=== PATIENT | male | born 1965 | race Caucasian/White ===

== ENCOUNTER → 2016-10-19 | Outpatient (CLI) | payer OTHER ==
[~2016-10-19] VITALS: Ht 177.8 cm; Wt 82.8 kg
[~2016-10-19] MED LIST: FLUTISP; LIDOCAINE 2% INJ 100 MG/5 ML SDV (FOR ANES.) As Ordered ONE; NS 1,000 ML IV SCH; OMEP20CA3 PO; PROPOFOL 200 MG/20 ML VIAL As Ordered ONE; SODI5OPD OD; VITA500046 PO
--- NOTE | 2016-10-19 11:59 | ROOR ---
Patient Name: Anshul Gant Procedure Date: 10/19/2016 11:23 AM Date of : 1965 Age: 50 Room: [facility] Gender: Male Note Status: Finalized Procedure: Colonoscopy Indications: Screening for colorectal malignant neoplasm Providers: Lauri THOMAS MD Referring MD: SANDRA BOYER JR, MD Requesting Provider: Medicines: Monitored Anesthesia Care Complications: No immediate complications. Procedure: Pre-Anesthesia Assessment: - The heart rate, respiratory rate, oxygen saturations, blood pressure, adequacy of pulmonary ventilation, and response to care were monitored throughout the procedure. The Colonoscope was introduced through the anus and advanced to the cecum, identified by appendiceal orifice and ileocecal valve. The colonoscopy was performed without difficulty. The patient tolerated the procedure well. The quality of the bowel preparation was good. Findings: (Exam: Complete, Prep: Good or Excellent.) The perianal exam findings include non-thrombosed external hemorrhoids. A 6 mm polyp was found in the splenic flexure. The polyp was sessile. The polyp was removed with a cold snare. Resection and retrieval were complete. The exam was otherwise without abnormality on direct and retroflexion views. Impression: - (Exam: Complete, Prep: Good or Excellent.) - Non-thrombosed external hemorrhoids found on perianal exam. - One 6 mm polyp at the splenic flexure, removed with a cold snare. Resected and retrieved. - The examination was otherwise normal on direct and retroflexion views. Recommendation: - Repeat colonoscopy in 3 years for surveillance. - Telephone endoscopist for pathology results in 2 weeks. Lauri Thomas MD Lauri THOMAS MD 10/19/2016 11:58:56 AM This report has been signed electronically. Number of Addenda: 0 Note Initiated On: 10/19/2016 11:23 AM Estimated Blood Loss: Estimated blood loss: none.
[2016-10-19 12:05] VITALS: BP_DIAS 56
[2016-10-19 12:26] VITALS: BP_SYST 142
== END | disposition home or self-care (01) ==
LOC: M OPP 09:18
PROVIDERS: ATTEND Internal Medicine Gastroenterology
DX: Z12.11 Encounter for screening for malignant neoplasm of colon (principal); K64.4 Residual hemorrhoidal skin tags; D12.3 Benign neoplasm of transverse colon; K21.9 Gastro-esophageal reflux disease without esophagitis; H44.21 Degenerative myopia, right eye; Z97.2 Presence of dental prosthetic device (complete) (partial); F17.200 Nicotine dependence, unspecified, uncomplicated; F17.228 Nicotine dependence, chewing tobacco, with other nicotine-induced disorders; Z79.899 Other long term (current) drug therapy; Z79.51 Long term (current) use of inhaled steroids

== ENCOUNTER → 2016-12-25 | Outpatient (REF) | payer OTHER ==
[~2016-12-25] MED LIST changes: -LIDOCAINE 2% INJ 100 MG/5 ML SDV (FOR ANES.) As Ordered ONE; -NS 1,000 ML IV SCH; -PROPOFOL 200 MG/20 ML VIAL As Ordered ONE
== END ==
LOC: M LAB REF 12:17
PROVIDERS: ATTEND Nurse Practitioner Family
DX: E29.1 Testicular hypofunction (principal)

== ENCOUNTER → 2017-01-25 | Outpatient (REF) | payer OTHER | LOC: M LAB REF 13:03 | PROVIDERS: ATTEND Nurse Practitioner Family | DX: E29.1 Testicular hypofunction (principal) ==

== ENCOUNTER → 2017-02-08 | Outpatient (REF) | payer OTHER | LOC: M LAB REF 15:11 | PROVIDERS: ATTEND Nurse Practitioner Family | DX: J02.9 Acute pharyngitis, unspecified (principal) ==

== ENCOUNTER → 2018-03-04 | Outpatient (REF) | payer OTHER ==
[2018-03-04 13:03] LABS: TESTOSTERONE 174 NG/DL (241-827)
== END ==
LOC: M LAB REF 11:45
DX: E29.1 Testicular hypofunction (principal)

== ENCOUNTER → 2022-11-27 | Outpatient (REF) | payer OTHER ==
[~2022-11-27] MED LIST changes: +OMEP1CAP73 PO; -OMEP20CA3 PO
[2022-11-27 13:27] LABS: ALBUMIN 3.8 G/DL (3.2-5.2); ALKALINE PHOSPHATASE 83 U/L (46-116); ALT/SGPT 18 U/L (7.0-40); AST/SGOT 16 U/L (<34); BILIRUBIN,TOTAL 1.3 MG/DL (0.3-1.2); BLOOD UREA NITROGEN 16 MG/DL (9-23); CALCIUM LEVEL 9.3 MG/DL (8.5-10.1); CARBON DIOXIDE LEVEL 27 MMOL/L (20-31); CHLORIDE LEVEL 107 MMOL/L (98-107); CHOLESTEROL LEVEL 210 MG/DL (<200); CHOLESTEROL RISK RATIO 3.52 (<5); CREATININE FOR GFR 0.91 MG/DL (0.70-1.30); GLOMERULAR FILTRATION RATE > 60.0 (>56); GLUCOSE, FASTING 108 MG/DL (60-100); HDL CHOLESTEROL 59.5 MG/DL (>40); LDL CHOLESTEROL 123.1 MG/DL (<100); NON-HDL-C 150.5 MG/DL; POTASSIUM SERUM 4.8 MMOL/L (3.5-5.1); SODIUM LEVEL 141 MMOL/L (136-145); TOTAL PROTEIN 6.9 G/DL (5.7-8.2); TRIGLYCERIDES LEVEL 137 MG/DL (<150)
[2022-11-27 13:30] LABS: THYROID STIMULATING HORMONE 1.215 uIU/ML (0.55-4.78)
[2022-11-27 13:31] LABS: BASO # 0.2 10^3/uL (0.0-0.2); BASO % 1.4 % (0.0-1.0); EOS # 0.4 10^3/uL (0.0-0.5); EOS % 3.7 % (0.0-3.0); HEMATOCRIT 52.2 % (42.0-52.0); HEMOGLOBIN 16.8 g/dl (13.5-17.5); LYMPH # 4.3 10^3/uL (1.5-5.0); LYMPH % 38.8 % (24.0-44.0); MEAN CORPUSCULAR HEMOGLOBIN 27.5 pg (27.0-33.0); MEAN CORPUSCULAR HGB CONC 32.2 g/dl (32.0-36.5); MEAN CORPUSCULAR VOLUME 85.3 fl (80.0-96.0); MONO # 1.1 10^3/uL (0.0-0.8); NEUTROPHILS % 45.6 % (36.0-66.0); PLATELET COUNT, AUTOMATED 403 10^3/uL (150-450); RED BLOOD COUNT 6.12 10^6/uL (4.30-6.10)
[2022-11-27 13:56] LABS: HEMOGLOBIN A1c 5.8 % (4.0-6.0)
== END ==
LOC: M LAB REF 12:31
PROVIDERS: ATTEND Nurse Practitioner Family
DX: I10 Essential (primary) hypertension (principal); F41.8 Other specified anxiety disorders; Z86.39 Personal history of other endocrine, nutritional and metabolic disease

== ENCOUNTER → 2022-12-10 | Outpatient (REF) | payer OTHER ==
[2022-12-11 13:55] LABS: CREATININE, URINE 152.7 MG/DL
[2022-12-11 13:56] LABS: MAU/CREAT RATIO 2.6 MCG/MG (0.0-30.0)
== END ==
LOC: M LAB REF 12:21
PROVIDERS: ATTEND Nurse Practitioner Family
DX: Z86.39 Personal history of other endocrine, nutritional and metabolic disease (principal)

== ENCOUNTER 2023-02-01 11:04 | Day surgery (SDC) | payer OTHER ==
[~2023-02-01] VITALS: Ht 180.3 cm; Wt 77.7 kg
[~2023-02-01 11:04] MED LIST changes: +AMLO1TAB24 PO; +BANO25TA PO; +FLUT50SP17; -FLUTISP; +NS 1,000 ML IV ONE; +OMEP40CA4 PO; +SODI1SOL4 OD; -SODI5OPD OD
[2023-02-01] MEDS ORDERED: fentaNYL 100 MCG/2 ML INJECTION As Ordered ONE (11:29)
[2023-02-01] MEDS ORDERED: propofoL 200 MG/20 ML VIAL As Ordered ONE (12:13)
[2023-02-01] MEDS ORDERED: LIDOCAINE 2% 100MG/5ML SDV (FOR ANES.) As Ordered ONE (12:13)
[2023-02-01 12:25] VITALS: BP 136/81
== END 2023-02-01 12:33 | disposition home or self-care (01) ==
LOC: M OPP 11:04
PROVIDERS: ATTEND Internal Medicine Gastroenterology
DX: Z12.11 Encounter for screening for malignant neoplasm of colon (principal); Z86.010 Personal history of colon polyps; D12.0 Benign neoplasm of cecum; K57.30 Diverticulosis of large intestine without perforation or abscess without bleeding; K64.8 Other hemorrhoids; K22.89 Other specified disease of esophagus; F17.200 Nicotine dependence, unspecified, uncomplicated; Z79.51 Long term (current) use of inhaled steroids; Z79.899 Other long term (current) drug therapy
CPT/HCPCS: 43239; 45380; 88305; J3010

== ENCOUNTER → 2023-03-10 | Outpatient (REF) ==
[~2023-03-10] MED LIST changes: -NS 1,000 ML IV ONE
== END ==
LOC: M PLAIMG 10:27
PROVIDERS: ATTEND Internal Medicine
DX: R52 Pain, unspecified (principal)

== ENCOUNTER 2023-07-21 05:59 | Day surgery (SDC) | payer OTHER ==
[~2023-07-21] VITALS: Ht 177.8 cm; Wt 80.5 kg
[~2023-07-21 05:59] MED LIST changes: +AMLO1TAB25 PO; +LEXA1TAB2 PO
[2023-07-21] MEDS ORDERED: PHENYLEPHRINE 10% OPHTH SOL 5ML OD PRN (06:00)
[2023-07-21] MEDS: OFLOXACIN 0.3 % (OCUFLOX) OPTH SOL 5ML OD ONE (06:49)
[2023-07-21] MEDS: LIDOCAINE 3.5 % 1ML OPHTH TOPICAL GEL OU ONE (06:49)
[2023-07-21] MEDS: PHENYLEPHRINE 2.5% OPHTH SOL 2ML OD SCH (06:49)
[2023-07-21] MEDS: TROPICAMIDE 1% OPHTH SOLN 15ML OD SCH (06:49)
[2023-07-21] MEDS: CYCLOPENTOLATE 1% OPHTH SOLN 2ML BTL OD SCH (06:49)
[2023-07-21] MEDS ORDERED: MIDAZOLAM INJ 2MG/2ML VIAL As Ordered ONE ×2 (07:11→08:54)
[2023-07-21] MEDS ORDERED: fentaNYL 100 MCG/2 ML INJECTION As Ordered ONE ×2 (07:11→08:21)
[2023-07-21] MEDS: LIDOCAINE 1% SDV 5ML VIAL As Ordered ONE (07:54)
[2023-07-21] MEDS: TOBRADEX OPHTH OINT 3.5 GM As Ordered ONE (07:59)
[2023-07-21] MEDS: CEFUROXIME 1MG/0.1ML INTRACAMERAL INJ As Ordered ONE (07:59)
[2023-07-21] MEDS: BSS IRRIG/VANCO(10MG)/TOBRA(5MG)/EPINEPH(1:1000-0.5CC)500ML BAG-ORONLY IR ONE (07:59)
[2023-07-21] MEDS: ACETYLCHOLINE OPHTH SOLN 1% 2ML (MIOCHOL-E) As Ordered ONE ×2 (08:11→08:37)
[2023-07-21] MEDS: DUOVISC (0.50ML VISCOAT/0.85ML PROVISC) OPHTH KIT As Ordered ONE (08:11)
[2023-07-21] MEDS ORDERED: LABETALOL 100MG/20ML VIAL As Ordered ONE (08:14)
[2023-07-21] MEDS ORDERED: propofoL 200 MG/20 ML VIAL As Ordered ONE ×2 (08:27→08:54)
[2023-07-21 10:27] VITALS: BP 119/85; TEMP 98.1; O2SAT 97
[2023-07-21] MEDS ORDERED: ACETAMINOPHEN TAB 650MG DOSE (2X325MG) PO ONE (11:10)
[2023-07-21] MEDS ORDERED: acetaZOLAMIDE 500MG ER CAP PO ONE (11:10)
== END 2023-07-21 11:09 | disposition home or self-care (01) ==
LOC: M SDC 05:59
PROVIDERS: ATTEND Ophthalmology
DX: H18.511 Endothelial corneal dystrophy, right eye (principal); H26.9 Unspecified cataract; R73.03 Prediabetes; I10 Essential (primary) hypertension; K21.9 Gastro-esophageal reflux disease without esophagitis; F17.210 Nicotine dependence, cigarettes, uncomplicated; Z79.899 Other long term (current) drug therapy
CPT/HCPCS: 65756; 66984; 87070; 87075; 87205; J0697; J1920; J2250; J3010; V2632

== ENCOUNTER 2023-07-21 14:21 | Emergency (ER) | payer OTHER ==
[~2023-07-21] VITALS: Ht 180.3 cm; Wt 77.3 kg
[2023-07-21] MEDS ORDERED: diazePAM 10MG/2ML SYRINGE IV ONE (14:50)
[2023-07-21] MEDS ORDERED: METOCLOPRAMIDE INJ 10MG/2ML VIAL IV ONE (14:50)
[2023-07-21] MEDS ORDERED: MORPHINE 4 MG/ML 1ML VIAL IV ONE (14:50)
[2023-07-21] MEDS ORDERED: TIMOLOL MALEATE 0.5% OPHTH SOLN 5 ML OD STA (15:07)
[2023-07-21] MEDS ORDERED: BRIMONIDINE 0.15% OPHTH SOLN 5 ML OD STA (15:07)
[2023-07-21] MEDS ORDERED: TETRACAINE 0.5% OPHTH SOLN 4ML As Ordered ONE (15:46)
[2023-07-21] MEDS ORDERED: TETRACAINE 0.5% OPHTH SOLN 4ML OD ONE (16:00)
[2023-07-21 16:55] VITALS: TEMP 97.5
[2023-07-21 17:00] VITALS: BP 145/96
[2023-07-21 17:21] VITALS: O2SAT 97
== END 2023-07-21 17:35 | disposition home or self-care (01) ==
LOC: M ED 14:21 → EDBD 14:21 → M ED 17:35
DX: T88.9XXA Complication of surgical and medical care, unspecified, initial encounter (principal); H40.051 Ocular hypertension, right eye; H57.11 Ocular pain, right eye; K21.9 Gastro-esophageal reflux disease without esophagitis; F10.10 Alcohol abuse, uncomplicated; Z79.83 Long term (current) use of bisphosphonates; Z79.899 Other long term (current) drug therapy
CPT/HCPCS: 96374; 96375; 99284; J1120; J2765; J3360

== ENCOUNTER 2023-08-18 12:14 | Day surgery (SDC) | payer OTHER ==
[~2023-08-18] VITALS: Ht 180.3 cm; Wt 78.0 kg
[~2023-08-18 12:14] MED LIST changes: -FLUT50SP17; +FLUTISP; +LIDOCAINE 3.5 % 1ML OPHTH TOPICAL GEL OU ONE
[2023-08-18] MEDS ORDERED: LIDOCAINE 4% TOPICAL SOLN 50 ML BTL As Ordered ONE (13:03)
[2023-08-18] MEDS ORDERED: LIDOCAINE 4% INJ 5ML AMP As Ordered ONE (13:12)
[2023-08-18] MEDS ORDERED: LR 1,000 ML IV SCH (13:50)
[2023-08-18] MEDS ORDERED: fentaNYL 100 MCG/2 ML INJECTION As Ordered ONE (14:32)
[2023-08-18] MEDS ORDERED: MIDAZOLAM INJ 2MG/2ML VIAL As Ordered ONE (14:32)
[2023-08-18] MEDS ORDERED: ACETYLCHOLINE OPHTH SOLN 1% 2ML (MIOCHOL-E) As Ordered ONE (15:59)
[2023-08-18] MEDS ORDERED: CEFUROXIME 1MG/0.1ML INTRACAMERAL INJ As Ordered ONE (16:00)
[2023-08-18] MEDS ORDERED: propofoL 200 MG/20 ML VIAL As Ordered ONE (16:41)
[2023-08-18] MEDS ORDERED: acetaZOLAMIDE 500MG ER CAP PO ONE (17:35)
[2023-08-18 17:50] VITALS: BP 162/89; TEMP 97.7; O2SAT 97
== END 2023-08-18 18:01 | disposition home or self-care (01) ==
LOC: M SDC 12:14
PROVIDERS: ATTEND Ophthalmology
DX: T86.840 Corneal transplant rejection (principal); K21.9 Gastro-esophageal reflux disease without esophagitis; F41.9 Anxiety disorder, unspecified; F32.A Depression, unspecified; H18.511 Endothelial corneal dystrophy, right eye; F17.218 Nicotine dependence, cigarettes, with other nicotine-induced disorders; F12.10 Cannabis abuse, uncomplicated
CPT/HCPCS: 65756; 87075; 87102; J0697; J2250; J3010

== ENCOUNTER → 2024-07-20 | Outpatient (CLI) | payer MEDICARE, OTHER ==
[~2024-07-20] MED LIST changes: -LIDOCAINE 3.5 % 1ML OPHTH TOPICAL GEL OU ONE
== END ==
LOC: M RAD 12:42
PROVIDERS: ATTEND Nurse Practitioner Family
DX: M54.2 Cervicalgia (principal)

== ENCOUNTER → 2025-04-23 | Outpatient (REF) | payer MEDICARE, OTHER ==
[2025-04-23 12:48] LABS: BASO # 0.2 10^3/uL (0.0-0.2); BASO % 1.6 % (0.0-1.0); EOS # 0.5 10^3/uL (0.0-0.5); EOS % 5.0 % (0.0-3.0); LYMPH # 3.6 10^3/uL (1.5-5.0); LYMPH % 35.4 % (24.0-44.0); MONO # 0.9 10^3/uL (0.0-0.8); MONO % 9.1 % (2.0-8.0); NEUTROPHILS # 4.9 10^3/uL (1.5-8.5); NEUTROPHILS % 48.5 % (36.0-66.0); PLATELET COUNT, AUTOMATED 405 10^3/uL (150-450)
[2025-04-23 12:54] LABS: ALT/SGPT 23 U/L (7.0-40); AST/SGOT 19 U/L (<34); CALCIUM LEVEL 9.9 MG/DL (8.5-10.1); CARBON DIOXIDE LEVEL 27 MMOL/L (20-31); CHLORIDE LEVEL 104 MMOL/L (98-107); CHOLESTEROL LEVEL 206 MG/DL (<200); CHOLESTEROL RISK RATIO 3.80 (<5); CREATININE FOR GFR 0.86 MG/DL (0.70-1.30); GLOMERULAR FILTRATION RATE > 90.0 (>56); LDL CHOLESTEROL 126.0 MG/DL (<100); MAGNESIUM LEVEL 2.0 MG/DL (1.8-2.4); NON-HDL-C 151.8 MG/DL; POTASSIUM SERUM 5.0 MMOL/L (3.5-5.1); SODIUM LEVEL 141 MMOL/L (136-145); TRIGLYCERIDES LEVEL 129 MG/DL (<150)
[2025-04-23 12:55] LABS: VITAMIN B12 LEVEL 312 PG/ML (211-911)
== END ==
LOC: M LAB REF 12:03
PROVIDERS: ATTEND Nurse Practitioner Family
DX: I10 Essential (primary) hypertension (principal); Z68.24 Body mass index [BMI] 24.0-24.9, adult; F10.20 Alcohol dependence, uncomplicated

== ENCOUNTER → 2025-06-27 | Outpatient (CLI) | payer MEDICARE, MEDICAID | LOC: M EKG 09:51 | PROVIDERS: ATTEND Nurse Practitioner Family | DX: I10 Essential (primary) hypertension (principal) ==